=== PATIENT | female | born 1995 | race Caucasian/White ===

== ENCOUNTER 2018-10-30 00:46 | Emergency (ER) | payer BC ==
[~2018-10-30] VITALS: Ht 172.7 cm; Wt 59.4 kg
--- NOTE | 2018-10-30 01:16 | NUR ---
Note undone in EDM - 10/30/18 at 0120 by PRADIP BIB SELF FROM HOME. AAOX4. NAD, BREATHING EVEN AND UNLABORDE. AMBULATORY. C/O R LOWER BACK PAIN STATED 9PM. PT ALSO REPOT URINARY URGENCY, NO BURNING SENSATION, NO HEMATURIA REPORTED. DESCRIBES PAIN THROBBING PULSATING , 09/16. TO ER BED 9. MD AT BEDSIDE. URINE COLLECTED AND SENT TO LAB
--- NOTE | 2018-10-30 01:16 | NUR ---
BIB SELF FROM HOME. AAOX4. NAD, BREATHING EVEN AND UNLABORDE. AMBULATORY. C/O R LOWER BACK PAIN STATED 9PM. PT ALSO REPOT URINARY URGENCY, NO BURNING SENSATION, NO HEMATURIA REPORTED. DESCRIBES PAIN THROBBING PULSATING , 5/10. PT IS SLIGHTLY NAUSEOUS. NO VOMITING AND DIARRHEA REPORTED. TO ER BED 9. MD AT BEDSIDE. URINE COLLECTED AND SENT TO LAB
[2018-10-30] MEDS ORDERED: KETOROLAC TROMETHAMINE INJ 60 MG/2 ML VIAL IM ONE (01:22)
[2018-10-30] MEDS ORDERED: ONDANSETRON HCL/PF 4 MG/2 ML VIAL ONE (01:22)
[2018-10-30 01:25] LABS: APPEARANCE,URINE Cloudy (CLEAR); BILIRUBIN,URINE Negative (NEGATIVE); BLOOD, URINE Large Ery/uL (NEGATIVE); COLOR,URINE Yellow (YELLOW); KETONES,URINE Negative (NEGATIVE); LEUKOCYTE ESTERASE ,URINE Small (NEGATIVE); NITRITE, URINE Negative (NEGATIVE); PROTEIN,URINE 30 mg/dl (NEGATIVE); UGLUCOSE Negative (NEGATIVE); UROBILINOGEN,URINE 0.2 EU/dL (0.2)
[2018-10-30] MEDS ORDERED: KETOROLAC TROMETHAMINE INJ 30 MG/ML VIAL IV ONE (01:30)
[2018-10-30] MEDS ORDERED: ONDANSETRON HCL/PF 4 MG/2 ML VIAL IVP ONE (01:30)
[2018-10-30] MEDS ORDERED: IV NS 0.9% 1,000 ML BAG IV ONE (01:30)
[2018-10-30 01:38] LABS: BASOPHILS # (AUTO) 0.1 /CMM (0.0-0.2); BASOPHILS % (AUTO) 0.8 % (0.0-2.0); EOSINOPHILS % (AUTO) 3.8 % (0.0-6.0); HEMATOCRIT 42 % (33-45); HEMOGLOBIN 14.2 g/dL (11.5-14.8); LYMPHOCYTES # (AUTO) 3.1 /CMM (0.8-4.8); LYMPHOCYTES % (AUTO) 36.1 % (20.0-44.0); MEAN CORPUSCULAR HGB CONC 34 g/dl (31.0-36.0); MEAN CORPUSCULAR VOLUME 89 fL (82-100); MONOCYTES # (AUTO) 0.5 /CMM (0.1-1.30); MONOCYTES % (AUTO) 6.3 % (2.0-12.0); NEUTROPHILS # (AUTO) 4.5 /CMM (1.8-8.9); PLATELET COUNT (AUTO) 223 /CMM (150-450); RED BLOOD CELL COUNT(AUTO) 4.72 MIL/uL (4.0-5.2); WHITE BLOOD COUNT (AUTO) 8.5 K/uL (4.3-11.0)
[2018-10-30 01:49] LABS: BILIRUBIN,DIRECT 0.1 mg/dL (0.0-0.2); BILIRUBIN,TOTAL 0.5 mg/dL (0.2-1.0); CALCIUM, SERUM 9.1 mg/dL (8.5-10.1); CREATININE 0.9 mg/dL (0.6-1.3); POTASSIUM 4.2 mmol/L (3.5-5.1); TOTAL PROTEIN, SERUM 7.1 g/dL (6.4-8.2)
[2018-10-30 01:53] LABS: BACTERIA,URINE Few /HPF (None Seen); RBC,URINE 21-50 /HPF (0-2); SQUAMOUS EPITHELIAL CELL,UR Few /HPF (None Seen); WBC,URINE 51-80 /HPF (0-3)
--- NOTE | 2018-10-30 02:00 | NUR ---
PT WHEELED TO CT ON [facility]
--- NOTE | 2018-10-30 03:31 | NUR ---
Patient discharged to home in stable condition. Written and verbal after care instructions given. Patient verbalizes understanding of instruction.IV removed. Catheter intact and site benign. Pressure and 4x4 applied to site. No bleeding noted. Pt ambulatory with a steady gait
[2018-10-30 03:32] VITALS: BP 108/69
== END 2018-10-30 03:42 | disposition home or self-care (01) ==
LOC: ER 00:49
DX: N20.0 Calculus of kidney (principal); N39.0 Urinary tract infection, site not specified; F32.9 Major depressive disorder, single episode, unspecified; F41.9 Anxiety disorder, unspecified
CPT/HCPCS: 36415; 74176; 80048; 80076; 81001; 83690; 84703; 85025; 87086; 96374; 96375; 99284; J1885; J2405; J7030; 81000-TC